=== PATIENT | male | born 1960 | race American Indian/Alaskan Native ===

== ENCOUNTER 2018-05-15 10:30 | Emergency (ER) | payer OTHER ==
[2018-05-15 10:50] VITALS: BP 146/107; PULSE 98; RESP 20; TEMP 99.4; O2SAT 97
--- NOTE | 2018-05-15 11:12 | C.PDOC ---
History Of Present Illness 57 y/o male with no sig pmx c/o right sided facial swelling since sat; pt sts he had an ingrown hair that he picked at, had scant discharge, though none now. denies fever, chills, difficulty swallowing. Time Seen by Provider: 05/15/18 11:00 Chief Complaint (Nursing): Abnormal Skin Integrity History Per: Patient History/Exam Limitations: no limitations Onset/Duration Of Symptoms: Days (3) Current Symptoms Are (Timing): Worse Location Of Injury: Right: Face Quality Of Symptoms: Painful, Swollen Severity: Moderate Past Medical History Reviewed: Historical Data, Nursing Documentation, Vital Signs Vital Signs: Last Vital Signs Temp 99.4 F 05/15/18 10:48 Pulse 98 H 05/15/18 10:48 Resp 20 05/15/18 10:48 BP 146/107 H 05/15/18 10:48 Pulse Ox 97 05/15/18 11:25 - Medical History PMH: No Chronic Diseases Family History: States: Unknown Family Hx - Social History Hx Alcohol Use: Yes Hx Substance Use: No - Immunization History Hx Tetanus Toxoid Vaccination: No Hx Influenza Vaccination: No Hx Pneumococcal Vaccination: No Review Of Systems Constitutional: Negative for: Fever, Chills ENT: Positive for: Other (right face swelling). Negative for: Mouth Pain, Mouth Swelling Musculoskeletal: Positive for: Other (face pain). Negative for: Neck Pain Skin: Positive for: Other (swelling to right side face) Neurological: Negative for: Weakness, Numbness Physical Exam - Physical Exam Appears: Non-toxic, No Acute Distress Skin: Warm, Dry Head: Normacephalic, Swelling (right facial swelling to cheek with firm, non fluctuant mass with 1 mm open area in center with no discharge at present. ) Teeth: Other (partly edentulous with broken tooth with caries in right lower mouth.) Neck: Normal ROM, Supple Neurological/Psych: Oriented x3, Normal Speech, Normal Cognition ED Course And Treatment O2 Sat by Pulse Oximetry: 97 Medical Decision Making Medical Decision Making: facial swelling at picking at ingrown hair; non fluctuant. start on antibiotics , warm compresses and f/u plastics or gen sx. Disposition Counseled Patient/Family Regarding: Diagnosis, Need For Followup, Rx Given - Disposition Referrals: Clarissa Olguin MD [Staff Provider] - Gonzales Green MD [Staff Provider] - [facility] [Outside] Disposition: HOME/ ROUTINE Disposition Time: 11:36 Condition: GOOD Additional Instructions: Take antibiotics as prescribed. Apply warm compresses to right side of face 4-5 times per day. Follow up with general or plastic surgeon. Return to ER for worsening swelling, fever or any other concerns. Prescriptions: Cephalexin [cephalexin] 500 mg PO Q6 #28 cap Sulfamethoxazole/Trimethoprim [Bactrim 400-80 mg Tablet] 1 each PO BID #14 tablet Instructions: Skin Abscess Forms: General Discharge Instructions, [facility] (Mongolian), Work Excuse - Clinical Impression Clinical Impression: Abscess of face
[2018-05-15] MEDS ORDERED: Tmp-Smz 800 mg-160 mg DS Tab PO STA (11:15)
[2018-05-15] MEDS ORDERED: Tmp-Smz 800 mg-160 mg DS Tab ONE (11:23)
== END 2018-05-15 11:45 | disposition home or self-care (01) ==
LOC: C.ER 10:30
DX: L02.01 Cutaneous abscess of face (principal)

== ENCOUNTER 2018-11-10 08:09 | Outpatient (CLI) | payer SELFPAY | END 2018-11-10 08:10 | disposition home or self-care (01) | LOC: C.RADH 08:09 | DX: M16.12 Unilateral primary osteoarthritis, left hip (principal); M47.816 Spondylosis without myelopathy or radiculopathy, lumbar region ==

== ENCOUNTER 2018-11-16 14:04 | Emergency (ER) | payer SELFPAY ==
[2018-11-16 14:14] VITALS: O2SAT 96
[2018-11-16] MEDS ORDERED: Lidocaine 5% Patch TD STA (14:53)
[2018-11-16] MEDS ORDERED: Lidocaine 5% Patch TD ONE (15:10)
--- NOTE | 2018-11-16 15:32 | C.PDOC ---
History Of Present Illness 58 y/o male presents to the ER complaining of lower back pain which has been present since yesterday. Patient states that he was off loading cases of liquor when he slipped on wet spot and landed on his lower back. Patient reports that he has pain mainly in the left side. Denies having LOC, headache, dizziness, neck pain, and urinary symptoms. Time Seen by Provider: 11/16/18 14:38 Chief Complaint (Nursing): Back Pain History Per: Patient History/Exam Limitations: no limitations Onset/Duration Of Symptoms: Days Current Symptoms Are (Timing): Still Present Severity: Moderate Past Medical History Reviewed: Historical Data, Nursing Documentation, Vital Signs Vital Signs: Last Vital Signs Temp 97.4 F L 11/16/18 14:11 Pulse 80 11/16/18 14:11 Resp 20 11/16/18 14:11 BP 153/94 H 11/16/18 14:11 Pulse Ox 96 11/16/18 14:11 - Medical History PMH: HTN Other Surgeries: Hx of surgeries Family History: States: No Known Family Hx - Social History Hx Alcohol Use: Yes Hx Substance Use: No - Immunization History Hx Tetanus Toxoid Vaccination: No Hx Influenza Vaccination: No Hx Pneumococcal Vaccination: No Review Of Systems Except As Marked, All Systems Reviewed And Found Negative. Genitourinary: Negative for: Dysuria, Incontinence, Hematuria Musculoskeletal: Positive for: Back Pain. Negative for: Neck Pain Neurological: Negative for: Headache, Dizziness Physical Exam - Physical Exam Appears: Non-toxic, No Acute Distress Skin: Normal Color, Warm, Dry Head: Atraumatic, Normacephalic Eye(s): bilateral: Normal Inspection Nose: Normal Oral Mucosa: Moist Neck: Supple Chest: Symmetrical Cardiovascular: Rhythm Regular Respiratory: Normal Breath Sounds, No Rales, No Rhonchi, No Wheezing Gastrointestinal/Abdominal: Normal Exam, Soft, No Tenderness, No Guarding, No Rebound Back: Normal Inspection, No Vertebral Tenderness Extremity: Normal ROM, Tenderness (mild tenderness to left buttock), Swelling (mild swelling to lateral aspect of left thigh) Neurological/Psych: Oriented x3, Normal Speech ED Course And Treatment O2 Sat by Pulse Oximetry: 96 (RA) Pulse Ox Interpretation: Normal Medical Decision Making Medical Decision Making: Plan: --Motrin PO --Tylenol PO --Lidoderm Patch Disposition Counseled Patient/Family Regarding: Diagnosis, Need For Followup, Rx Given - Disposition Disposition: HOME/ ROUTINE Disposition Time: 15:29 Condition: STABLE Prescriptions: Ibuprofen [Motrin] 600 mg PO TID #15 tab Lidocaine 5% [Lidoderm] 1 ea TD DAILY #2 patch Instructions: Contusion (DC) Forms: General Discharge Instructions, [facility] (Guatemalan), Work Excuse - POA Present On Arrival: None - Clinical Impression Clinical Impression: Contusion of back - Scribe Statement The provider has reviewed the documentation as recorded by the Julien Jasso Provider Attestation: All medical record entries made by the Julien were at my direction and personally dictated by me. I have reviewed the chart and agree that the record accurately reflects my personal performance of the history, physical exam, medical decision making, and the department course for this patient. I have also personally directed, reviewed, and agree with the discharge instructions and disposition.
[2018-11-16 15:45] VITALS: BP 149/79; PULSE 76; RESP 18; TEMP 98
== END 2018-11-16 15:44 | disposition home or self-care (01) ==
LOC: C.ER 14:04
DX: S30.0XXA Contusion of lower back and pelvis, initial encounter (principal); W01.0XXA Fall on same level from slipping, tripping and stumbling without subsequent striking against object, initial encounter; I10 Essential (primary) hypertension